=== PATIENT | male | born 1955 | race Caucasian/White ===

== ENCOUNTER 2018-01-16 09:31 | Emergency (ER) | payer OTHER, MEDICARE, MEDICAID ==
[~2018-01-16] VITALS: Ht 165.1 cm; Wt 88.0 kg
[~2018-01-16 09:31] MED LIST: ALBU8.5H4 IH; ALLO100T PO; AMLO2.5T4 PO; BUDE0.253 IH; CLIN150C8 PO; DESO60OI10 TP; HYDR-3965 PO; HYDR-569 PO; IRBE150T51 PO; LORA-512 PO; MONT10TA21 PO; MUPI15CR11 TP; SERIN IH; TERB250T4 PO
[2018-01-16] MEDS ORDERED: ketorolac trometh. 30mg/ml inj. IM ONE (10:10)
[2018-01-16] MEDS ORDERED: ketorolac trometh inj. 60 MG/2 ML VIAL IM ONE (10:10)
[2018-01-16] MEDS ORDERED: HYDROcodone/acetaminophen 5mg/325mg tablet PO ONE (10:10)
[2018-01-16 10:13] VITALS: BP 134/56
[2018-01-16] MEDS ORDERED: HYDR-3965 PO (10:52)
== END 2018-01-16 12:03 | disposition home or self-care (01) ==
LOC: ER 09:32
DX: S46.211A Strain of muscle, fascia and tendon of other parts of biceps, right arm, initial encounter (principal); S76.012A Strain of muscle, fascia and tendon of left hip, initial encounter; I10 Essential (primary) hypertension; J44.9 Chronic obstructive pulmonary disease, unspecified; G89.29 Other chronic pain; Z87.891 Personal history of nicotine dependence; Z98.890 Other specified postprocedural states; Z79.899 Other long term (current) drug therapy; Z91.010 Allergy to peanuts; Z91.018 Allergy to other foods; X50.1XXA Overexertion from prolonged static or awkward postures, initial encounter; Y93.89 Activity, other specified; Y92.69 Other specified industrial and construction area as the place of occurrence of the external cause; Y99.9 Unspecified external cause status
CPT/HCPCS: 73502; 96372; 99284; J1885

== ENCOUNTER 2018-01-23 09:56 | Outpatient (CLI) | payer OTHER, MEDICARE, MEDICAID ==
[~2018-01-23] VITALS: Ht 165.1 cm; Wt 85.8 kg
[2018-01-23 10:01] VITALS: BP 144/82
== END 2018-01-23 10:37 | disposition home or self-care (01) ==
LOC: ORTHO 09:56
PROVIDERS: ATTEND Nurse Practitioner Family
DX: S46.211A Strain of muscle, fascia and tendon of other parts of biceps, right arm, initial encounter (principal); F12.90 Cannabis use, unspecified, uncomplicated; I10 Essential (primary) hypertension; J45.909 Unspecified asthma, uncomplicated; F32.9 Major depressive disorder, single episode, unspecified; Z86.19 Personal history of other infectious and parasitic diseases; Z87.891 Personal history of nicotine dependence; Z91.010 Allergy to peanuts; Z91.018 Allergy to other foods; Z91.013 Allergy to seafood; X58.XXXA Exposure to other specified factors, initial encounter; Y93.89 Activity, other specified; Y92.89 Other specified places as the place of occurrence of the external cause; Y99.8 Other external cause status
CPT/HCPCS: 99213

== ENCOUNTER 2019-10-01 10:03 | Day surgery (SDC) | payer MEDICAID, MEDICARE ==
[2019-09-24 16:50] LABS: BASOPHILS # (AUTO) 0.1 X10'3 (0-0.2); CLARITY,URINE CLEAR (Clear); COLOR,URINE YELLOW (Yellow); EOSINOPHILS # (AUTO) 0.5 X10'3 (0-0.9); GLUCOSE, URINE NEGATIVE (Neg); KETONES,URINE NEGATIVE (Neg); LEUKOCYTE ESTERASE ,URINE TRACE (Neg); LYMPHOCYTES % (AUTO) 16.3 % (21-51); MEAN CORPUSCULAR HEMOGLOBIN 31.8 PG (27.0-31.0); MEAN CORPUSCULAR HGB CONC 33.9 g/dL (33.0-36.5); MEAN CORPUSCULAR VOLUME 93.8 FL (78-98); MEAN PLATELET VOLUME 8.7 FL (7.4-10.4); MONOCYTES # (AUTO) 0.6 X10'3 (0-0.9); MONOCYTES % (AUTO) 10.3 % (2-12); NEUTROPHILS % (AUTO) 64.4 % (42-75); NITRITES, URINE NEGATIVE (Neg); OCCULT BLOOD,URINE TRACE-INTACT (Neg); PH,URINE 5.5 (4.8-8.0); PRE OP HEMATOCRIT 44.8 % (42.0-52.0); PRE OP HEMOGLOBIN 15.2 g/dL (14.0-17.9); PRE OP PLATELET COUNT 219 X10'3 (140-440); PROTEIN,URINE NEGATIVE (Neg); RED BLOOD COUNT 4.77 X10'6 (4.70-6.10); RED CELL DISTRIBUTION WIDTH 13.9 % (11.5-14.5); UROBILINOGEN,URINE 0.2 E.U/dL (0.2-1.0)
[2019-09-24 16:55] LABS: UA COLLECTION TYPE NON-SPECIFIED
[2019-09-24 16:56] LABS: BACTERIA,URINE NONE SEEN /HPF (Neg); MUCUS STRANDS NONE SEEN /LPF (Neg); RBC,URINE 0-2 /HPF (0-2); SQUAMOUS EPITHELIAL CELL,UR FEW /LPF (FEW); WBC,URINE 0-4 /HPF (0-4)
[2019-09-24 17:00] LABS: PRE OP PROTIME 10.1 SECONDS (9.0-12.0)
[2019-09-24 17:01] LABS: ALBUMIN 3.8 G/DL (3.4-5.0); ALKALINE PHOSPHATASE 146 IU/L (46-116); BLOOD UREA NITROGEN 12 MG/DL (7-18); BUN/CREATININE RATIO 13.2 (5.4-32.0); CALCIUM 8.7 MG/DL (8.5-10.1); CHLORIDE 103 MMOL/L (99-107); CREATININE 0.91 MG/DL (0.60-1.10); PRE OP ALT 40 U/L (30-65); PRE OP ANION GAP 10 (8-16); PRE OP AST 30 U/L (10-37); PRE OP BILIRUB, TOTAL 0.4 MG/DL (0.0-1.0); PRE OP GLUCOSE 93 MG/DL (70-104); PRE OP POTASSIUM 3.6 MMOL/L (3.4-5.1); PRE OP SODIUM 139 MMOL/L (135-145); TOTAL PROTEIN 7.6 G/DL (6.4-8.2); eGFR 84 ML/MIN
[~2019-10-01] VITALS: Ht 162.6 cm; Wt 83.5 kg
[2019-10-01] VITALS (11 sets, daily range): BP systolic 117–174; BP diastolic 63–96
[~2019-10-01 10:03] MED LIST changes: +ALBU4TAB14 PO; -ALLO100T PO; -AMLO2.5T4 PO; -BUDE0.253 IH; -CLIN150C8 PO; -DESO60OI10 TP; +DIPH25CA83 PO; +DUPI300S SQ; -HYDR-569 PO; -IRBE150T51 PO; -LORA-512 PO; +LOSA50TA3 PO; -MONT10TA21 PO; -MUPI15CR11 TP; -SERIN IH; -TERB250T4 PO; +albuterol 2.5 MG/3 ML nebule NEB ONE; +cefazolin/dext.iso 2gm/50ml 50 ML IV ONE; +famotidine 20mg tablet PO ONE; +ringers solution, lacted 1,000 ML IV SCH
[2019-10-01] MEDS ORDERED: BUSP5TAB3 PO (11:03)
[2019-10-01] MEDS ORDERED: bacitracin 15gm ointment TP ONE (12:50)
[2019-10-01] MEDS ORDERED: BUPIVAcaine/PF 2.5 mg/ml (0.25%) 30ml vial ONE (12:50)
[2019-10-01] MEDS ORDERED: ringers solution, lacted 1,000 ML IV SCH (13:08)
[2019-10-01] MEDS ORDERED: ondansetron/PF 4mg/2ml inj IV PRN (13:10)
[2019-10-01] MEDS ORDERED: sevoflurane 250ml liquid IH ONE (13:10)
[2019-10-01] MEDS ORDERED: glycopyrrolate 0.2mg/ml inj ONE (13:10)
[2019-10-01] MEDS ORDERED: rocuronium 10mg/ml inj IV ONE ×2 (13:10→14:33)
[2019-10-01] MEDS ORDERED: fentaNYL/PF 50MCG/1 ML 2ML syringe ONE ×2 (13:10→13:27)
[2019-10-01] MEDS ORDERED: proCHLORperazine 10 MG/2 ml inj IV PRN (13:10)
[2019-10-01] MEDS ORDERED: morphine 2 MG/ML inj. syringe IV PRN (13:10)
[2019-10-01] MEDS ORDERED: meperidine/PF 25mg/ml syringe IV PRN ×2 (13:10)
[2019-10-01] MEDS ORDERED: neostigmine methylsulfate 1 MG/ML 10ml vial ONE (13:10)
[2019-10-01] MEDS ORDERED: midazolam 2 mg/2 ml injection ONE (13:11)
[2019-10-01] MEDS ORDERED: dexamethasone sod phosphate 4mg/ml inj. ONE (14:33)
[2019-10-01] MEDS ORDERED: ondansetron/PF 4mg/2ml inj ONE (14:33)
[2019-10-01] MEDS ORDERED: propofol inj 20 ML IV ONE (14:33)
[2019-10-01] MEDS ORDERED: ePHEDrine 50MG/ML INJ. ONE (14:33)
[2019-10-01] MEDS ORDERED: LIDOcaine 2% (20mg/ml) 5ml vial ONE (14:33)
--- NOTE | 2019-10-01 15:00 | NUR ---
Received from OR via BED , accompanied by Anesthesiologist DR BLOOM and report given by Anesthesiolgist. PATIENT WAKING UP, C/O PAIN SEE EMAR, V/S WNL, NEUROVASCULAR CHECKS INTACT, 20G PIV RUE , DRESSING TO RIGHT FOOT CDI W/ CAM BOOT ON
[2019-10-01] MEDS: meperidine/PF 25mg/ml syringe IV PRN ×3 (15:05→15:36)
[2019-10-01] MEDS ORDERED: acetaminophen 1,000mg/100ml IV 100 ML IV ONE (15:10)
[2019-10-01] MEDS: morphine 4 MG/ML inj SYRINge IV PRN ×2 (15:47→15:57)
[2019-10-01] MEDS ORDERED: HYDROcodone/acetaminophen 5mg/325mg tablet PO ONE (15:55)
--- NOTE | 2019-10-01 16:30 | NUR ---
PATIENT A&OX4, PAIN MEDS GIVEN SEE EMAR , STATES PAIN UNDER CONTROL NOW, V/S WNL, NEUROVASCULAR CHECKS INTACT, 20G PIV RUE D/C, DRESSING TO RIGHT FOOT CDI W/ CAM BOOT ON. . I HAVE REVIEWED D/C INSTRUCTIONS WITH PATIENT AND FAMILY AND THEY HAVE VERBALIZED UNDERSTANDING. PATIENT D/C HOME WITH ALL BELONGINGS AND FAMILY GAVE TRANSPORT HOME.
== END 2019-10-01 16:30 | disposition home or self-care (01) ==
LOC: PRE-OP 10:03 → PAS 16:30
PROVIDERS: ATTEND Podiatrist Foot & Ankle Surgery
DX: M20.21 Hallux rigidus, right foot (principal); M20.11 Hallux valgus (acquired), right foot; M20.41 Other hammer toe(s) (acquired), right foot; M77.42 Metatarsalgia, left foot; M19.071 Primary osteoarthritis, right ankle and foot; M77.41 Metatarsalgia, right foot; J44.9 Chronic obstructive pulmonary disease, unspecified; I10 Essential (primary) hypertension; M25.374 Other instability, right foot; Z79.899 Other long term (current) drug therapy; Z98.890 Other specified postprocedural states; Z72.89 Other problems related to lifestyle; Z87.891 Personal history of nicotine dependence; Z88.8 Allergy status to other drugs, medicaments and biological substances; Z11.59 Encounter for screening for other viral diseases
CPT/HCPCS: 28285; 28750; 36415; 71046; 73620; 76000; 80053; 81001; 82948; 85025; 85610; 85730; 87088; 93005; 94640; 94760; A6223; C1713; J0131; J1100; J2001; J2175; J2250; J2270; J2405; J2704; J2710; J3010; J3490; J7120; U0003; A4618; A6253; A6449; A7000

== ENCOUNTER 2021-07-09 12:00 | Outpatient (CLI) | payer MEDICARE, MEDICAID ==
[~2021-07-09 12:00] MED LIST changes: -ALBU4TAB14 PO; +BUSP5TAB3 PO; -albuterol 2.5 MG/3 ML nebule NEB ONE; -cefazolin/dext.iso 2gm/50ml 50 ML IV ONE; -famotidine 20mg tablet PO ONE; -ringers solution, lacted 1,000 ML IV SCH
[2021-07-09 15:03] LABS: BASOPHILS # (AUTO) 0.1 X10'3 (0-0.2); BASOPHILS % (AUTO) 1.3 % (0-1); EOSINOPHILS # (AUTO) 1.2 X10'3 (0-0.9); EOSINOPHILS % (AUTO) 16.6 % (0-6); LYMPHOCYTES # (AUTO) 0.9 X10'3 (1.1-4.8); LYMPHOCYTES % (AUTO) 12.4 % (21-51); MEAN CORPUSCULAR HGB CONC 33.8 g/dL (33.0-36.5); MEAN CORPUSCULAR VOLUME 94.7 FL (78-98); MEAN PLATELET VOLUME 8.7 FL (7.4-10.4); MONOCYTES # (AUTO) 0.7 X10'3 (0-0.9); MONOCYTES % (AUTO) 9.8 % (2-12); NEUTROPHILS # (AUTO) 4.3 X10'3 (1.8-7.7); NEUTROPHILS % (AUTO) 59.9 % (42-75); PRE OP HEMOGLOBIN 13.9 g/dL (14.0-17.9); PRE OP PLATELET COUNT 208 X10'3 (140-440); RED BLOOD COUNT 4.33 X10'6 (4.70-6.10); RED CELL DISTRIBUTION WIDTH 13.7 % (11.5-14.5)
[2021-07-09 15:21] LABS: ALBUMIN 3.5 G/DL (3.4-5.0); ALBUMIN/GLOBULIN RATIO 0.9 (1.1-1.5); ALKALINE PHOSPHATASE 118 IU/L (46-116); BLOOD UREA NITROGEN 13 MG/DL (7-18); BUN/CREATININE RATIO 15.1 (5.4-32.0); CALCIUM 8.5 MG/DL (8.5-10.1); CHLORIDE 102 MMOL/L (99-107); CREATININE 0.86 MG/DL (0.60-1.10); PRE OP ALT 39 U/L (30-65); PRE OP ANION GAP 9 (8-16); PRE OP AST 27 U/L (10-37); PRE OP BILIRUB, TOTAL 0.2 MG/DL (0.0-1.0); PRE OP GLUCOSE 105 MG/DL (70-104); PRE OP POTASSIUM 3.8 MMOL/L (3.4-5.1); PRE OP SODIUM 138 MMOL/L (135-145); TOTAL CARBON DIOXIDE 27.1 MMOL/L (24-32); TOTAL PROTEIN 7.2 G/DL (6.4-8.2); eGFR 89 ML/MIN
[2021-07-10] MEDS ORDERED: BUSP10TA11 PO (17:36)
[2021-07-10] MEDS ORDERED: ALBU4TAB4 PO (17:40)
[2021-07-10] MEDS ORDERED: TRIA15OI9 TOP (17:40)
[2021-07-10] MEDS ORDERED: EFF37.5XRC PO (17:40)
[2021-07-10] MEDS ORDERED: LORA10TA7 PO (17:40)
== END 2021-07-09 23:59 | disposition home or self-care (01) ==
LOC: PRE-OP 12:00 → EDSTATUS 07-16 13:15
PROVIDERS: ATTEND Orthopaedic Surgery
DX: Z01.812 Encounter for preprocedural laboratory examination (principal); M25.512 Pain in left shoulder; M75.42 Impingement syndrome of left shoulder; M75.122 Complete rotator cuff tear or rupture of left shoulder, not specified as traumatic; Z20.822 Contact with and (suspected) exposure to COVID-19
CPT/HCPCS: 36415; 80053; 85025; 87081; U0003; U0005

== ENCOUNTER 2021-09-10 09:38 | Inpatient (IN) | payer MEDICARE, MEDICAID ==
[2021-09-03 14:41] LABS: EOSINOPHILS # (AUTO) 0.3 X10'3 (0-0.9); EOSINOPHILS % (AUTO) 7.6 % (0-6); LYMPHOCYTES # (AUTO) 0.7 X10'3 (1.1-4.8); LYMPHOCYTES % (AUTO) 15.7 % (21-51); MEAN CORPUSCULAR HEMOGLOBIN 31.3 PG (27.0-31.0); MEAN CORPUSCULAR HGB CONC 33.9 g/dL (33.0-36.5); MEAN CORPUSCULAR VOLUME 92.4 FL (78-98); MEAN PLATELET VOLUME 8.5 FL (7.4-10.4); MONOCYTES # (AUTO) 0.6 X10'3 (0-0.9); MONOCYTES % (AUTO) 14.4 % (2-12); NEUTROPHILS # (AUTO) 2.6 X10'3 (1.8-7.7); NEUTROPHILS % (AUTO) 61.3 % (42-75); PRE OP HEMATOCRIT 41.5 % (42.0-52.0); PRE OP HEMOGLOBIN 14.1 g/dL (14.0-17.9); PRE OP PLATELET COUNT 200 X10'3 (140-440); RED BLOOD COUNT 4.49 X10'6 (4.70-6.10); RED CELL DISTRIBUTION WIDTH 14.3 % (11.5-14.5)
[2021-09-04 07:55] LABS: ALBUMIN 3.6 G/DL (3.4-5.0); ALKALINE PHOSPHATASE 114 IU/L (46-116); BLOOD UREA NITROGEN 19 MG/DL (7-18); BUN/CREATININE RATIO 19.6 (5.4-32.0); CALCIUM 8.6 MG/DL (8.5-10.1); CHLORIDE 104 MMOL/L (99-107); CREATININE 0.97 MG/DL (0.60-1.10); PRE OP ALT 37 U/L (30-65); PRE OP ANION GAP 9 (8-16); PRE OP AST 25 U/L (10-37); PRE OP BILIRUB, TOTAL 0.3 MG/DL (0.0-1.0); PRE OP GLUCOSE 124 MG/DL (70-104); PRE OP SODIUM 137 MMOL/L (135-145); TOTAL CARBON DIOXIDE 23.7 MMOL/L (24-32); TOTAL PROTEIN 7.2 G/DL (6.4-8.2); eGFR 78 ML/MIN
[2021-09-10] VITALS (17 sets, daily range): BP systolic 78–146; BP diastolic 34–76
[~2021-09-10] VITALS: Ht 162.6 cm; Wt 84.3 kg
[~2021-09-10 09:38] MED LIST changes: +ALBU4TAB4 PO; +BUSP10TA11 PO; -BUSP5TAB3 PO; +EFF37.5XRC PO; -HYDR-3965 PO; +LORA10TA7 PO; +TRIA15OI9 TOP; +ceFAZolin inj. 2,000 MG in dextrose 5%-water 100 ML IV ONE; +famotidine 20mg tablet PO ONE; +ringers solution, lacted 1,000 ML IV SCH; +tranexamic acid 650mg tablet PO ONE; +vancomycin 1,500 MG in NS 300ml IV soln IV ONE
--- NOTE | 2021-09-10 09:45 | NUR ---
CSM: RADIAL AND PEDA; PULSES PALPABLE, SKIN CDI, AND WARM TO TOUCH. PATIENT EDUCATED ON INCENTIVE SPIROMETER
[2021-09-10] MEDS ORDERED: proCHLORperazine 10 MG/2 ml inj IV PRN (10:30)
[2021-09-10] MEDS ORDERED: ringers solution, lacted 1,000 ML IV SCH (10:30)
[2021-09-10] MEDS ORDERED: ROPIVAcaine 0.2% (10 MG/5 ML) BOLUS INJECTION INTERSCALE PRN (10:30)
[2021-09-10] MEDS ORDERED: ondansetron/PF 4mg/2ml inj IV PRN ×2 (10:30→16:25)
[2021-09-10] MEDS ORDERED: HYDROmorphone/PF 0.2 MG/ML SYRINGE IV PRN ×2 (10:30)
[2021-09-10] MEDS ORDERED: meperidine/PF 25mg/ml syringe IV PRN (10:30)
[2021-09-10] MEDS ORDERED: hydrALAZINE 20mg/ml inj. IV PRN (10:30)
[2021-09-10] MEDS ORDERED: ROPIVAcaine 0.2%/PF PUMP/bolus 545 ML INTERSCALE SCH (10:30)
[2021-09-10] MEDS ORDERED: fentaNYL/PF 50MCG/1 ML 2ML syringe IV PRN ×2 (10:30)
[2021-09-10] MEDS ORDERED: labetalol 20mg/4ml (5mg/ml) syringe IV PRN (10:30)
[2021-09-10] MEDS ORDERED: acetaminophen 1,000mg/100ml IV 100 ML IV PRN (10:30)
[2021-09-10] MEDS ORDERED: ROPIVAcaine 0.5% (5mg/ml) 30ml vial ONE ×3 (13:10→14:37)
[2021-09-10] MEDS ORDERED: ketorolac trometh. 30mg/ml inj. ONE ×2 (13:10→13:24)
[2021-09-10] MEDS ORDERED: fentaNYL/PF 50MCG/1 ML 2ML syringe ONE (13:58)
[2021-09-10] MEDS ORDERED: midazolam 1 mg/ML 2ml injection ONE (13:58)
[2021-09-10] MEDS ORDERED: LIDOcaine 1%/PF 5ML 10 MG/ML VIAL ONE ×2 (14:37)
[2021-09-10] MEDS ORDERED: albuterol 60 PUFF/8GM Inhaler IH ONE (14:37)
[2021-09-10] MEDS ORDERED: LIDOcaine 2% (20mg/ml) 5ml vial ONE (14:37)
[2021-09-10] MEDS ORDERED: propofol inj 20 ML IV ONE (14:37)
[2021-09-10] MEDS ORDERED: 0.9 % SODIUM CHLORIDE 10 ML VIAL ONE (14:43)
[2021-09-10] MEDS ORDERED: ePHEDrine 50MG/ML INJ. ONE (14:43)
[2021-09-10] MEDS ORDERED: ondansetron/PF 4mg/2ml inj ONE (14:48)
[2021-09-10] MEDS ORDERED: dexamethasone sod phosphate 4mg/ml inj. ONE (14:48)
[2021-09-10] MEDS ORDERED: morphine 4 MG/ML inj SYRINge ONE (15:58)
[2021-09-10] MEDS ORDERED: ipratropium/albuterol 3ml nebule NEB STA (16:04)
--- NOTE | 2021-09-10 16:06 | NUR ---
Received from OR via ORTHO BED, accompanied by Anesthesiologist DR VELA and report given by Anesthesiolgist. PT PLACED ON O2 AND MONITOR, S/P LEFT TSA, GENERAL ANESTHESIA WITH INTERSCALINE BLOCK. GOOD RADIAL PULSES BILAT, PT HAS LFT SHOULDER DRESSING CDI, COVERED WITH WRAP, ICE PACK, AND LEFT ARM IN SHOULDER IMMOBILIZER. PT HAS 18G PIV IN RIGHT PROXIMAL FOREARM. DENIES ANY PAIN OR NAUSEA. WILL ATTACH ONQ PUMP AND CONTINUE TO ASSESS.
[2021-09-10] MEDS ORDERED: HYDROmorphone inj. 0.5 MG/0.5 ML DISP.SYRIN IV PRN (16:25)
[2021-09-10] MEDS ORDERED: ALBUTEROL SULFATE PO PRN (16:25)
[2021-09-10] MEDS ORDERED: naloxone 0.4 mg/ml inj IV PRN (16:25)
[2021-09-10] MEDS ORDERED: oxyCODONE IR 5mg (immed. release) tablet PO PRN (16:25)
[2021-09-10] MEDS ORDERED: bisacodyl 10mg suppository rectal RC PRN (16:25)
[2021-09-10] MEDS ORDERED: ALBUTEROL INHALER 1 PUFF/90 MCG INHALER IH PRN (16:25)
[2021-09-10] MEDS ORDERED: magnesium hydroxide 30ml (MOM) UD suspension PO PRN (16:25)
[2021-09-10] MEDS ORDERED: acetaminophen 325mg tablet PO PRN (16:25)
[2021-09-10] MEDS ORDERED: diphenhydrAMINE 25mg capsule PO PRN ×3 (16:25)
[2021-09-10] MEDS ORDERED: HYDROmorphone 1 mg/ml syringe IV PRN (16:25)
[2021-09-10] MEDS ORDERED: albuterol 2.5 MG/3 ML nebule NEB PRN (16:30)
[2021-09-10] MEDS ORDERED: triamcinolone acetonide 0.1% ointment 15gm TP PRN (16:35)
[2021-09-10] MEDS ORDERED: DUPIXENT 300 MG/2 ML SQ SCH (16:35)
--- NOTE | 2021-09-10 16:49 | NUR ---
Patient in room . I have received report from Bee SIMS and had the opportunity to ask questions will assume patient care when patient
--- NOTE | 2021-09-10 17:06 | NUR ---
BELONGINGS SENT WITH PT. 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
--- NOTE | 2021-09-10 17:06 | NUR ---
Report called to receiving nurse. Transferred via ORTHO BED Belongings . Special Issues communicated to receiving nurse.
--- NOTE | 2021-09-10 18:33 | NUR ---
Problems reprioritized. Patient report given, questions answered & plan of care reviewed with Orlin SIMS.
[2021-09-10] MEDS: oxyCODONE IR 5mg (immed. release) tablet PO PRN (19:34)
[2021-09-10] MEDS: potassium cl 20mEq in 1/2 NS 1,000 ML IV SCH (19:42)
[2021-09-10] MEDS ORDERED: vancomycin/NS 1 GM ADD-VANTAGE 250 ML IV SCH (20:00)
[2021-09-10] MEDS ORDERED: venlafaxine XR 37.5mg cap (Q24H) PO SCH (21:00)
[2021-09-10] MEDS ORDERED: losartan 50mg tablet PO SCH (21:00)
[2021-09-10] MEDS ORDERED: sennosides 8.6mg tablet PO SCH (21:00)
[2021-09-10] MEDS: acetaminophen 325mg tablet PO SCH (21:07)
[2021-09-10] MEDS: busPIRone 5mg tablet PO SCH (21:08)
[2021-09-11] MEDS: ceFAZolin/D5W- 1GM premix 50 ML IV SCH ×2 (00:53→08:07)
[2021-09-11] MEDS: oxyCODONE IR 5mg (immed. release) tablet PO PRN ×3 (00:58→09:44)
[2021-09-11 02:00] VITALS: BP 110/54
[2021-09-11] MEDS: acetaminophen 325mg tablet PO SCH ×2 (02:00→08:11)
[2021-09-11] MEDS: potassium cl 20mEq in 1/2 NS 1,000 ML IV SCH ×2 (05:45→08:25)
[2021-09-11 06:00] VITALS: BP 141/75
--- NOTE | 2021-09-11 06:10 | NUR ---
Problems reprioritized. Patient report given, questions answered & plan of care reviewed with carlie Garza.
[2021-09-11 06:22] LABS: BASOPHILS % (AUTO) 0.1 % (0-1); EOSINOPHILS % (AUTO) 0.1 % (0-6); HEMATOCRIT 39.9 % (42.0-52.0); HEMOGLOBIN 13.4 g/dl (14.0-17.9); LYMPHOCYTES # (AUTO) 0.4 X10'3 (1.1-4.8); LYMPHOCYTES % (AUTO) 4.1 % (21-51); MEAN CORPUSCULAR HGB CONC 33.5 g/dL (33.0-36.5); MEAN CORPUSCULAR VOLUME 95.3 FL (78-98); MEAN PLATELET VOLUME 8.8 FL (7.4-10.4); MONOCYTES # (AUTO) 0.8 X10'3 (0-0.9); NEUTROPHILS # (AUTO) 8.7 X10'3 (1.8-7.7); NEUTROPHILS % (AUTO) 87.7 % (42-75); PLATELET COUNT 206 X10'3 (140-440); RED BLOOD COUNT 4.18 X10'6 (4.70-6.10); RED CELL DISTRIBUTION WIDTH 14.7 % (11.5-14.5)
--- NOTE | 2021-09-11 06:35 | NUR ---
Patient in room ORTHO 4024. I have received report from Orlin SIMS and had the opportunity to ask questions and assume patient care.
[2021-09-11 07:13] LABS: ANION GAP 10 (8-16); CHLORIDE 105 MMOL/L (99-107); POTASSIUM 4.9 MMOL/L (3.5-5.1); SODIUM 138 MMOL/L (135-145); TOTAL CARBON DIOXIDE 23.2 MMOL/L (24-32)
[2021-09-11] MEDS ORDERED: loratadine 10mg tablet PO SCH (08:00)
[2021-09-11] MEDS: busPIRone 5mg tablet PO SCH (08:10)
[2021-09-11] MEDS ORDERED: aspirin 325mg tablet PO SCH (08:30)
[2021-09-11 10:00] VITALS: BP 110/62
[2021-09-11] MEDS ORDERED: pneumococcal 23-VAL P-sac vacc 25 mcg/0.5ml vial IMVAC ONE (13:25)
--- NOTE | 2021-09-11 13:30 | NUR ---
Patient discharge instructions reviewed with patient and patient verbalized understanding. Patient sent home with full ONQ ball attached, cling, wrap and powder packs. Patients IV Dc'd by Resource RN. Patient states he has all his belongings. Patient taken to friends vehicle via wheelchair by Auxillary
[2021-09-12] MEDS ORDERED: acetaminophen 325mg tablet PO PRN (16:25)
== END 2021-09-11 13:30 | disposition home or self-care (01) | DRG 483 ==
LOC: PAS 09:38 → EDSTATUS 12:30 → ORTHO 4S 19:32 → PAS 09-11 07:25 → ORTHO 4S 09-11 07:27
PROVIDERS: ADMIT Orthopaedic Surgery; ATTEND Orthopaedic Surgery
PROC: 0LS40ZZ Reposition Left Upper Arm Tendon, Open Approach (ICD-10-PCS; 2021-09-10)
PROC: 3E0T3BZ Introduction of Anesthetic Agent into Peripheral Nerves and Plexi, Percutaneous Approach (ICD-10-PCS; 2021-09-10)
PROC: 0RRK00Z Replacement of Left Shoulder Joint with Reverse Ball and Socket Synthetic Substitute, Open Approach (ICD-10-PCS; principal; 2021-09-10 13:52)
DX: M19.012 Primary osteoarthritis, left shoulder (principal); M75.102 Unspecified rotator cuff tear or rupture of left shoulder, not specified as traumatic; Z28.21 Immunization not carried out because of patient refusal
CPT/HCPCS: 36415; 71046; 80051; 80053; 82948; 85025; 87081; 94640; 94760; 97116; 97161; 97530; A4565; A4618; A7000; C1776; G0378; J0690; J1100; J1885; J2250; J2270; J2405; J2704; J2795; J3010; J3370; J3480; J3490; J7040; J7060; J7120; U0003; U0005

== ENCOUNTER 2022-08-26 09:00 | Emergency (ER) | payer MEDICARE, MEDICAID ==
[~2022-08-26] VITALS: Ht 162.6 cm; Wt 88.6 kg
[~2022-08-26 09:00] MED LIST changes: -ALBU4TAB4 PO; +PANT-47 PO; -TRIA15OI9 TOP; -ceFAZolin inj. 2,000 MG in dextrose 5%-water 100 ML IV ONE; -famotidine 20mg tablet PO ONE; -ringers solution, lacted 1,000 ML IV SCH; -tranexamic acid 650mg tablet PO ONE; -vancomycin 1,500 MG in NS 300ml IV soln IV ONE
[2022-08-26 09:18] VITALS: BP 153/74
[2022-08-26] MEDS ORDERED: HYDROcodone/acetaminophen 10/325mg tab PO ONE (10:10)
[2022-08-26] MEDS ORDERED: HYDR-3973 PO (10:46)
== END 2022-08-26 11:19 | disposition home or self-care (01) ==
LOC: ER 09:01
DX: M25.511 Pain in right shoulder (principal); I10 Essential (primary) hypertension; J44.9 Chronic obstructive pulmonary disease, unspecified; F12.90 Cannabis use, unspecified, uncomplicated; Z91.013 Allergy to seafood; Z88.5 Allergy status to narcotic agent; Z91.018 Allergy to other foods; Z91.010 Allergy to peanuts
CPT/HCPCS: 73030; 99283

== ENCOUNTER 2023-01-21 05:19 | Day surgery (SDC) | payer MEDICARE, MEDICAID ==
[2023-01-14 14:29] LABS: BASOPHILS % (AUTO) 0.9 % (0-1); EOSINOPHILS # (AUTO) 0.2 X10'3 (0-0.9); EOSINOPHILS % (AUTO) 4.4 % (0-6); LYMPHOCYTES # (AUTO) 0.9 X10'3 (1.1-4.8); LYMPHOCYTES % (AUTO) 18.4 % (21-51); MEAN CORPUSCULAR HEMOGLOBIN 32.6 PG (27.0-31.0); MEAN CORPUSCULAR HGB CONC 33.6 g/dL (33.0-36.5); MEAN CORPUSCULAR VOLUME 96.9 FL (78-98); MEAN PLATELET VOLUME 8.6 FL (7.4-10.4); MONOCYTES # (AUTO) 0.6 X10'3 (0-0.9); MONOCYTES % (AUTO) 11.4 % (2-12); NEUTROPHILS # (AUTO) 3.3 X10'3 (1.8-7.7); NEUTROPHILS % (AUTO) 64.9 % (42-75); PRE OP HEMATOCRIT 41.6 % (42.0-52.0); PRE OP PLATELET COUNT 210 X10'3 (140-440); PRE OP WHITE BLOOD COUNT 5.1 10'3 (4.8-10.8); RED BLOOD COUNT 4.29 X10'6 (4.70-6.10)
[2023-01-14 14:30] LABS: PRE OP INR 0.9 INR; PRE OP PROTIME 10.1 SECONDS (9.0-12.0)
[2023-01-14 14:36] LABS: ALBUMIN 3.8 G/DL (3.4-5.0); ALBUMIN/GLOBULIN RATIO 1.1 (1.1-1.5); ALKALINE PHOSPHATASE 95 IU/L (46-116); BLOOD UREA NITROGEN 18 MG/DL (7-18); BUN/CREATININE RATIO 15.7 (10.0-20.0); CALCIUM 8.9 MG/DL (8.5-10.1); CHLORIDE 102 MMOL/L (99-107); CREATININE 1.15 MG/DL (0.60-1.10); PRE OP ALT 35 U/L (30-65); PRE OP ANION GAP 10 (8-16); PRE OP AST 21 U/L (10-37); PRE OP BILIRUB, TOTAL 0.2 MG/DL (0.0-1.0); PRE OP GLUCOSE 89 MG/DL (70-104); PRE OP POTASSIUM 4.2 MMOL/L (3.4-5.1); PRE OP SODIUM 136 MMOL/L (135-145); TOTAL CARBON DIOXIDE 24.3 MMOL/L (24-32); TOTAL PROTEIN 7.3 G/DL (6.4-8.2); eGFR 63 ML/MIN
[2023-01-14 14:53] LABS: BILIRUBIN,URINE NEGATIVE (Neg); CLARITY,URINE CLEAR (Clear); COLOR,URINE YELLOW (Yellow); GLUCOSE, URINE NEGATIVE (Neg); KETONES,URINE NEGATIVE (Neg); LEUKOCYTE ESTERASE ,URINE NEGATIVE (Neg); NITRITES, URINE NEGATIVE (Neg); OCCULT BLOOD,URINE NEGATIVE (Neg); PH,URINE 5.5 (4.8-8.0); PROTEIN,URINE NEGATIVE (Neg); UROBILINOGEN,URINE 0.2 E.U/dL (0.2-1.0)
[2023-01-14 14:58] LABS: UA COLLECTION TYPE NON-SPECIFIED
[~2023-01-21] VITALS: Ht 162.6 cm; Wt 90.8 kg
[~2023-01-21 05:19] MED LIST changes: +ACET-1123 PO; +ALBU4TAB4; -DIPH25CA83 PO; -EFF37.5XRC PO; -LORA10TA7 PO; +LOSA-416 PO; -LOSA50TA3 PO; -PANT-47 PO; +VENL75CA61 PO; +ringers solution, lacted 1,000 ML IV SCH
[2023-01-21] MEDS ORDERED: cefazolin 2gm/D5W 100mL 100 ML IV ONE (05:30)
[2023-01-21] MEDS ORDERED: tranexamic acid inj. 1,000 MG in normal saline IV soln 100ML IV ONE (05:30)
[2023-01-21] MEDS ORDERED: famotidine 20mg tablet PO ONE (05:30)
[2023-01-21] MEDS ORDERED: methylene blue (5mg/ml) 50mg/10ml ampul IV ONE (06:39)
[2023-01-21] MEDS ORDERED: vancomycin 1,000mg inj ONE (06:39)
--- NOTE | 2023-01-21 07:00 | NUR ---
DR EDMONDSON IN TO SEE PT, NOTIFIED OF RASH TO RIGHT FOREARM. DR EDMONDSON DISCUSSED RISKS W/ PT AND BOTH AGREE SURGERY WILL BE POSTPONED. PT TO CALL OFFICE TO RESCHEDULE ONCE RASH IS CLEARED UP.
--- NOTE | 2023-01-21 07:00 | NUR ---
IV DC'D CATH TIP IN TACT. PT D/C'D SAFELY VIA PERSONAL VEHICLE DRIVEN BY FAMILY MEMBER. ALL BELONGINGS W/ PT UPON DC TO HOME.
[2023-01-21] MEDS ORDERED: BUPIVAcaine 0.5% inj/PF 0 ML ONE (07:08)
[2023-01-21] MEDS ORDERED: BUPIVACAINE liposomal/PF 13.3 MG/ML vial IM ONE (07:08)
== END 2023-01-21 07:00 | disposition home or self-care (01) ==
LOC: OR 05:19 → PAS IN 05:19 → UNDOADMIN 05:19 → OR 07:00 → EDSTATUS 07:30
PROVIDERS: ATTEND Specialist
DX: M19.011 Primary osteoarthritis, right shoulder (principal); Z53.8 Procedure and treatment not carried out for other reasons; L30.9 Dermatitis, unspecified; J45.909 Unspecified asthma, uncomplicated; I10 Essential (primary) hypertension; Z79.899 Other long term (current) drug therapy; Z96.612 Presence of left artificial shoulder joint; Z72.89 Other problems related to lifestyle; F17.290 Nicotine dependence, other tobacco product, uncomplicated; Z88.8 Allergy status to other drugs, medicaments and biological substances; Z79.01 Long term (current) use of anticoagulants
CPT/HCPCS: 36415; 80053; 80307; 81003; 82948; 85025; 85610; 85730; 87081; J0690; J3490; J7120; C9290; J3370; Q9968; S0020

== ENCOUNTER 2025-01-06 03:38 | Emergency (ER) | payer MEDICARE, MEDICAID ==
[~2025-01-06] VITALS: Ht 160 cm; Wt 87.2 kg
[~2025-01-06 03:38] MED LIST changes: -ringers solution, lacted 1,000 ML IV SCH
[2025-01-06 03:46] VITALS: TEMP 97.8
[2025-01-06 06:34] VITALS: BP 190/95; PULSE 72; RESP 18; O2SAT 98
--- NOTE | 2025-01-06 06:37 | Physician Documentation ---
History of Present Illness ~ Chief Complaint: Groin Pain Stated Complaint: PROSTATE ISSUES Time Seen by MD: 06:31 Primary Medical Doctor: [facility] [place] HPI This is a 69-year-old gentleman with a history of COPD, presents for evaluation of dysuria, hematuria, frequency and urgency that has been present for the last two days. Reports some suprapubic/groin pain. The particular palliating or aggravating factors. He thinks this is his prostate, however he does not have history of prostatitis in the past. Reports chills but no fever. Denies any nausea, vomiting, diarrhea. Denies chest pain or difficulty breathing. Smokes. Denies concerns for drug use, alcohol. Medication Reconciliation Allergies: Coded Allergies: fish derived (Verified Allergy, Severe, HIVES IN MOUTH AND NECK, 01/06/25) tramadol (Verified Allergy, Severe, ASTHMA- WHEEZING, 01/06/25) banana (Verified Allergy, Mild, rash in mouth, 01/06/25) peanut (Verified Allergy, Mild, hives, 01/06/25) Scheduled Albuterol Sulfate Tab* (Albuterol Sulfate Tab*), 1 TAB BID, (Reported) Buspirone Hcl* (Buspar*), 1 TAB PO BID, (Reported) Dupilumab (Dupixent), 2 ML SQ [id number], (Reported) Losartan* (Cozaar*), 1 TAB PO HS, (Reported) Venlafaxine Hcl (Venlafaxine Hcl Er), 1 CAP PO DAILY, (Reported) Scheduled PRN Acetaminophen (Acetaminophen), 2 TAB PO QDAY PRN PRN for pain or fever, (Reported) Albuterol Inhaler* (Albuterol Inhaler*), 2 PUFFS IH BID PRN for SOB or wheezing, (Reported) Past Medical History Past Medical History: Hypertension, Asthma, COPD, Chronic Pain Past Surgical History: orthopedic surgeries Alcohol Use: Occasionally Drug Use: marijuana Review of Systems ROS 10 point review of systems was performed and unless noted above in HPI is negative for acute process/complaint. Physical Exam Vital Signs: Temperature: 97.8, Source: Temporal, Heart Rate: 81, Respiratory Rate: 16, BP: 185/95, Pulse Oximetry: 97, Weight: 87.200 Oxygen Flow Rate: 0 Physical Exam GENERAL: Awake, alert, oriented, GCS 15, no apparent distress, non-toxic a ppearing, answers questions, follows commands appropriately. Examined in the waiting room/triage. HEENT: Atraumatic, normocephalic, pupils equal, extraocular muscles intact, sclerae anicteric, mucus membranes moist, oropharynx is clear, no stridor. NECK: supple, full active range of motion, trachea midline, no thyromegaly, no lymphadenopathy, no JVD. CARDIOVASCULAR: regular rate/rhythm, no murmurs/gallops/rubs, Pulses are 2+ in all extremities and symmetric. Capillary refill less than 2 seconds. PULMONARY: Nonlabored, good air movement ,no respiratory distress, speaking in full sentences, clear to auscultation bilaterally, no wheezing, no ronchi, no rales, no accessory muscle use. GASTROINTESTINAL: Soft, non-tender, non-distended, normal active bowel sounds, no organomegaly, no pulsatile masses, no CVA tenderness. NEUROLOGIC: Lucid with normal mental status. Normal facial symmetry. Moves all extremities symmetrically and with purpose. No truncal ataxia. Speech is fluid without evidence of dysarthria or aphasia, no focal deficits appreciated. MUSCULOSKELETAL: There is full range of motion of all extremities. There is no joint pain or joint swelling or joint erythema. There is no muscle pain or tenderness or swelling. EXTREMITIES: warm, well-perfused, no cyanosis, no clubbing, no edema, no acute deformities. Skin: warm, dry, no rashes or lesions, no jaundice, no petechiae orpurpura. No ecchymosis. PSYCHIATRIC: Normal affect, normal insight, normal concentration. Focused exam: [] Progress Results/Orders Results/Orders Orders - SHERRELL ASHER DO Cult Urine + [place] [address] (01/06/25 07:22) Completed Orders - SHERRELL ASHER DO Cbc/Diff (01/06/25 06:36) ESR (01/06/25 06:36) Lipase (01/06/25 06:36) C-Reactive Protein (01/06/25 06:36) CMP (01/06/25 06:36) Ua W/Microscopic, Cult If Ind (01/06/25 06:45) Vital Signs 01/06/25 01/06/25 03:46 06:34 Temp 97.8 Pulse 81 72 Resp 16 18 B/P (MAP) 185/95 190/95 (126) Pulse Ox 97 98 O2 Flow Rate 0 0 Laboratory Tests Test 01/06/25 06:45 01/06/25 07:36 Urine Specimen Description Cln catch midstream Urine Color [place] Urine Clarity Clear Urine pH Urine Specific [place] Urine Protein Urine Glucose (UA) Urine Ketones Urine Occult Blood Urine Nitrite Urine Bilirubin Urine Urobilinogen Urine Leukocyte Esterase Urine RBC 50-100 Urine WBC 20-30 H Urine Squamous Epithelial Cells Few Urine Bacteria Few Urine Mucus None seen Urine Culture Indicated Indicated Volume Urine Centrifuged 6 ml Urine Comment Low volume White Blood Count 7.8 Red Blood Count 4.53 L Hemoglobin 14.7 Hematocrit 43.1 Mean Corpuscular Volume 95.1 Mean Corpuscular Hemoglobin 32.6 H Mean Corpuscular Hemoglobin Concent 34.2 Red Cell Distribution Width 14.4 Platelet Count 185 Mean Platelet Volume 8.8 Neutrophils (%) (Auto) 75.3 H Lymphocytes (%) (Auto) 8.9 L Monocytes (%) (Auto) 13.5 H Eosinophils (%) (Auto) 1.8 Basophils (%) (Auto) 0.5 Neutrophils # (Auto) 5.9 Lymphocytes # (Auto) 0.7 L Monocytes # (Auto) 1.1 H Eosinophils # (Auto) 0.1 Basophils # (Auto) 0.0 CBC Comment Erythrocyte Sedimentation Rate 10 Sodium Level 133 L Potassium Level 3.9 Chloride Level 97 L Carbon Dioxide Level 23.9 L Anion Gap 12 Blood Urea Nitrogen 12 Creatinine 1.75 H Estimated GFR/1.73 m2 39 BUN/Creatinine Ratio 6.9 L Glucose Level 119 H Calcium Level 8.7 Total Bilirubin 0.6 Aspartate Amino Transf (AST/SGOT) 24 Alanine Aminotransferase (ALT/SGPT) 25 Alkaline Phosphatase 129 H C-Reactive Protein 2.34 H Total Protein 7.4 Albumin 3.7 Globulin 3.7 Albumin/Globulin Ratio 1.0 L Lipase 18 Chemistry Comments Microbiology Date/Time Source Procedure Growth Status 01/06/25 07:22 Urine Clean Catch Midstream Urine Culture - Preliminary Culture received. Resulted Medical Decision Making Findings Facility Status: [facility] process The plan was discussed with the patient, who demonstrates clear understanding of the plan and is in agreement with the plan unless otherwise noted in the chart. All questions have been answered, all concerns were addressed unless otherwise documented. I was available throughout their ED stay for frequent reassessment and questions. Differential Diagnoses (considered and possible or likely): [Urinary tract infection, pyelitis, pyelonephritis, prostatitis, unlikely to represent kidney stone, unlikely to represent of orchitis, epididymo-orchitis.] ??Differential Diagnoses (considered and unlikely, not requiring evaluation currently): [Highly unlikely to represent acute intra-abdominal process requiring surgical intervention.] MDM Data Please see [facility] for the following: Independent Historians and external Records Review. Historian: [Patient] Independent Historians: ?[Record review] Medication Management: [Reviewed medication list] Social History and determinants: [Reviewed] Please see the body of the note for the following: Any independent interpretations of ECG, imaging studies. All vitals signs/haemodynamics, ordered tests were independently reviewed and interpreted by myself. Nursing triage complaint and vitals reviewed, additional nursing notes were reviewed as available and I agree unless otherwise noted or documented in contradiction in the chart Vital Signs: Independently reviewed Labs: Independently interpreted Imaging: Independently interpreted Old Medical Records: Independently reviewed, see [facility] for relevant summary and information Pulse Oximetry: [97%] interpreted as [normal on room air] by me Additionally notably showing: [Hemodynamics reviewed. The patient is not febrile, not tachycardic, evidence of hypotension respiratory distress. CBC shows no leukocytosis, no neutrophilic predominance. ESR is normal. Chemistry shows LACEY versus CKD periods elevated CRP noted. Urine is positive for UTI.] Tests considered but not ordered include: [Imaging has been considerably does not appear to be necessary as there was no abdominal pain.] Social Determinants of Health Impact: Patient was evaluated in [facility] [place] to healthcare due to below par ratio of patient to medical providers. [] Comorbid Conditions Impacting Present Evaluation and Care/Treatment: [Multiple, see list] Management Discussions with other Healthcare Providers: [None] Treatment and Disposition Medication Management (Given or considered): []. See EMR for details Consideration for Hospitalization/Escalation/Deescalation of Care: Admission for observation has been considered, [however the patient is able to tolerate p.o., their symptoms are controlled, they are able to rely on oral medications, and their chief complaint/diagnosis can be managed on outpatient basis.] ?ED Course:?[Date: Jan 06, 2025 Time: 06:35 patient has been in the waiting room of this hospital for 3 hours prior to me seeing him, for 2-1/2 hours prior to me coming in on shift. No clinical deterioration. ] ?Shared decision making:?[Patient is hemodynamically stable for discharge home with follow with their primary care provider. [ ] Specific and cautious return precautions provided and discussed with full understanding. Any incidental findings were also discussed and follow up recommendations given. [] All questions answered. Patient/family were able to verbalize back return precautions. Patient/family agree to plan. Copies of imaging and laboratory studies were provided.] Code status:?FULL Please see the full Electronic Medical Record for full details of nursing documentation, medications list, other records of complete past medical history and conditions, vital signs, laboratory studies, and any radiologic study interpretations by radiologists. Portions of this note were completed using [employer] dictation software and as a result there may exist minor errors in spelling. I have reviewed elements of past family and social history and agree as included in note. Departure Disposition: HOME / SELF CARE / HOMELESS Impression: Primary Impression: Urinary tract infection Condition: Improved Discharge Instructions: Urinary Tract Infection, Adult Referrals: NO PRIMARY CARE PROVIDER (PCP) Prescriptions Amox Tr/Potassium Clavulanate (Augmentin 875-125 Tablet) 1 Each Tablet 1 TAB PO Q12H for 14 Days, #28 TAB Prov: SHERRELL ASHER DO 01/06/25 Education Educated: Patient Educated regarding: diagnosis, treatment, prognosis, need for follow up (This) Signature Scribe Signature: No scribe Attestation: This note accurately reflects clinical decisions, work performed by myself, DO LB Danielle NICHOLAS M DO Jan 06, 2025 06:37
[2025-01-06 07:15] LABS: UA COLLECTION TYPE CLN CATCH MIDSTREAM
[2025-01-06 07:21] LABS: MUCUS STRANDS NONE SEEN /LPF (Neg); SQUAMOUS EPITHELIAL CELL,UR FEW /LPF (FEW)
[2025-01-06 08:17] LABS: MEAN PLATELET VOLUME 8.8 FL (7.4-10.4); RED CELL DISTRIBUTION WIDTH 14.4 % (11.5-14.5)
[2025-01-06 08:42] LABS: CREATININE 1.75 MG/DL (0.60-1.10); TOTAL CARBON DIOXIDE 23.9 MMOL/L (24-32); eCRCL 32 ML/MIN; eGFR 39 ML/MIN
[2025-01-06] MEDS ORDERED: AMOX-117 PO (09:13)
[2025-01-06] MEDS ORDERED: TAMS-55 PO (09:35)
== END 2025-01-06 09:37 | disposition home or self-care (01) ==
LOC: ER 03:39
DX: N39.0 Urinary tract infection, site not specified (principal); I10 Essential (primary) hypertension; J44.9 Chronic obstructive pulmonary disease, unspecified; F17.200 Nicotine dependence, unspecified, uncomplicated; F12.90 Cannabis use, unspecified, uncomplicated; Z88.5 Allergy status to narcotic agent; Z91.010 Allergy to peanuts; Z91.013 Allergy to seafood; Z91.018 Allergy to other foods
CPT/HCPCS: 36415; 80053; 81001; 83690; 85025; 85651; 86140; 87088; 99283